=== PATIENT | female | born 1955 | race Caucasian/White ===

== ENCOUNTER 2016-11-25 06:29 | Day surgery (SDC) | payer BC ==
[2016-11-23 10:31] LABS: BASOPHILS 0.4 %; BASOPHILS ABSOLUTE 0.02 10/3/uL (0.0-0.16); EOSINOPHILS 3.3 %; EOSINOPHILS ABSOLUTE 0.17 10/3/uL (0.0-0.53); HEMATOCRIT 38.1 % (36.0-48.0); HEMOGLOBIN 12.5 g/dL (12.0-16.0); IMMATURE GRANULOCYTES 0.2 %; IMMATURE GRANULOCYTES ABSOLUTE 0.01 10/3/uL (0.0-0.11); LYMPHOCYTES 25.8 %; LYMPHOCYTES ABSOLUTE 1.33 10/3/uL (0.67-4.30); MEAN CORPUS HGB CONC 32.8 g/dL (32.0-36.0); MEAN CORPUSCULAR HEMOGLOB 30.3 pg (26.0-34.0); MEAN CORPUSCULAR VOLUME 92.5 fL (80-100); MEAN PLATELET VOLUME 10.1 fL (9.2-13.0); MONOCYTES 8.7 %; MONOCYTES ABSOLUTE 0.45 10/3/uL (0.21-1.20); NEUTROPHILS 61.6 %; NEUTROPHILS ABSOLUTE 3.17 10/3/uL (2.02-8.40); PLATELET COUNT 193 10/3/uL (150-400); RBC DISTRIBUTION WIDTH 12.9 % (12.0-16.0); RED CELL COUNT 4.12 10/6/uL (4.0-5.6); WHITE BLOOD CELLS 5.2 10/3/uL (4.5-10.5)
[2016-11-23 10:35] LABS: PARTIAL THROMBO TIME 23.8 SEC (22.5-37.2); PROTIME (NOT ORD) 13.1 SEC (12.0-14.5)
[2016-11-23 10:37] LABS: MANUAL DIFF NO %
[2016-11-23 10:39] LABS: BUN (BLOOD UREA NITROGEN) 14 MG/DL (6-23); CALCIUM, SERUM 9.1 MG/DL (8.5-10.4); CHLORIDE, SERUM 108 MMOL/L (96-112); CO2 (CARBON DIOXIDE) 28 MMOL/L (24-34); GFR AFRICAN AMERICAN 108 ML/MIN (>=60); GFR NON AFRICAN AMERICAN 93 ML/MIN (>=60); GLUCOSE, SERUM 120 MG/DL (60-99); SODIUM, SERUM 143 MMOL/L (135-148)
[2016-11-23 10:50] LABS: PFA (COL/EPI) 158 SEC (72-180)
--- NOTE | ~2016-11-25 | OP ---
Record Of Operation [facility] [address] [place]. [address] NAME: IBRAHIMA SHEETS : 53 STATUS : [facility] UNIT#: [id number] AGE: 61 ADM/REG DATE : 11/25/16 MR#: [id number] REPORT SERV DATE: 11/26/16 DICTATED BY: WILY OSBORN DATE: 11/25/16 REPORT STATUS : Draft TRANSCRIBED BY: NATALIA DATE: 11/25/16 DATE OF PROCEDURE: 11/25/2016 PREOPERATIVE DIAGNOSIS: Surgical absence of the breast. POSTOPERATIVE DIAGNOSES: Surgical absence of the breast and bilateral breast deformity. PROCEDURE: Right tissue go cart mechanic exchange to definitive silicone implant and fat grafting and liposuction for deformity correction. INDICATIONS AND FINDINGS OF THE PROCEDURE: This middle-aged female is status post a bilateral breast reconstruction radiation therapy. She is now appropriate for exchange of her right sub latissimus dorsi tissue go cart mechanic for definitive silicone implant and fat grafting and revision of breasts bilaterally. DETAILS OF THE PROCEDURE: The patient was brought to the operating room after being marked in the preoperative holding area. She was prepped and draped in the usual sterile fashion for the above-described procedure. First, our attention was turned to the abdomen. Through two small stab incisions, approximately 250 mL of wetting solution was infiltrated into the abdomen and then about 250 mL of fatty aspirate was removed to REVOLVE apparatus. This was treated appropriately and then transferred to 10 mL syringes. Using a topographical map placed before surgery and multiple stab incisions made around the breast mound, approximately 100 mL of fatty aspirate was then transferred to the topographical map. Completing this, then our attention was turned to the sternum. An inferior stab incision was made and approximately 30 mL of wetting solution was infiltrated over the sternum and fat aspiration was then undertaken here laterally. On the right breast, a similar procedure was carried out. With this completed, then a medial incision was made excising a small amount of the cutaneous paddle of the latissimus dorsi muscle and dissection was carried down to the level of the tissue go cart mechanic on the right. The tissue go cart mechanic was ruptured and removed. A superior capsulotomy was carried out. Lateral capsulotomy was carried out. She was checked for hemostasis, irrigated with Hibiclens solution. An inferior drain was then placed and a 420 mm plus implant was placed into the site. This was manipulated into an appropriate position. The wounds were then closed with a deep layer of Vicryl and multiple layers of Monocryl through to an intracuticular in the skin. Laterally, a small dog ear was excised about 3 cm in length, excised lenticularly through to the level of the underlying fat. Hemostasis was checked with cautery. This was closed with interrupted and running 3-0 Monocryl. Extraction and injection incisions were then closed with 5-0 fast-absorbing gut. She was cleansed with peroxide. Dry dressing was placed. She was remanded to the recovery room in stable condition. All sponge and needle counts were correct. YODIT/NATALIA Wily Osborn M.D. Record Of Operation [address] [address] NAME: IBRAHIMA SHEETS : 53 STATUS : [facility] PAT#: [id number] AGE: 61 ADM/REG DATE : 11/25/16 MR#: [id number] REPORT SERV DATE: 11/26/16 DICTATED BY: WILY OSBORN DATE: 11/25/16 REPORT STATUS : Draft TRANSCRIBED BY: NATALIA DATE: 11/25/16 / [id number] CC: Tyron Rubi Jr., M.D.
[~2016-11-25 06:29] MED LIST: ASAB PO; AT25 PO; ATV.5 PO; CALTRA600D PO; GLUCCHONDR PO; GLUCPH PO; K500 PO; MULTIVIT/MIN PO; NORV25 PO; PERCOCET1 TA2 PO; PRILO PO; TAMOXIFEN20 M1 PO; VITAMIN D1000 UNI1 PO; ZANTAC150 MG PO
[2017-03-08] MEDS ORDERED: NORCO1 TA1 PO (22:39)
[2017-03-08] MEDS ORDERED: NORV25 PO (22:40)
[2017-03-08] MEDS ORDERED: TYLENOL PM PO (22:40)
[2017-03-08] MEDS ORDERED: ATV.5 PO (22:40)
[2017-03-08] MEDS ORDERED: TAMOXIFEN20 M1 PO (22:40)
[2017-03-08] MEDS ORDERED: ASAB PO (22:41)
[2017-03-08] MEDS ORDERED: VITAMIN D31000 UNIT PO (22:41)
[2017-03-08] MEDS ORDERED: MULTIVITAMI1 PO (22:41)
[2017-03-08] MEDS ORDERED: MAG OXIDE250 MG PO (22:41)
[2017-03-11] MEDS ORDERED: C2 PO (13:57)
[2017-03-11] MEDS ORDERED: ZOFRAN4 PO (13:57)
== END 2016-11-25 13:34 | disposition home or self-care (01) ==
LOC: SDC 06:29
PROVIDERS: Surgery Surgery of the Hand
PROC: 0HRT0JZ Replacement of Right Breast with Synthetic Substitute, Open Approach (ICD-10-PCS; 2016-11-25)
PROC: 0HPT0NZ Removal of Tissue Expander from Right Breast, Open Approach (ICD-10-PCS; principal; 2016-11-25 07:45)
DX: N65.0 Deformity of reconstructed breast (principal); G43.909 Migraine, unspecified, not intractable, without status migrainosus; M81.0 Age-related osteoporosis without current pathological fracture; I10 Essential (primary) hypertension; K21.9 Gastro-esophageal reflux disease without esophagitis; E11.9 Type 2 diabetes mellitus without complications; M06.9 Rheumatoid arthritis, unspecified; F41.9 Anxiety disorder, unspecified; Z85.3 Personal history of malignant neoplasm of breast; Z88.8 Allergy status to other drugs, medicaments and biological substances
CPT/HCPCS: 80048; 82962; 85025; 85576; 85610; 85730; 93005; A9270-GY; C1769; C1789; J0690; J1170; J1885; J2250; J2405; J3010

== ENCOUNTER 2017-03-31 05:32 | Day surgery (SDC) | payer BC ==
[2017-03-28 17:22] LABS: CALCIUM, SERUM 8.8 MG/DL (8.5-10.4); CHLORIDE, SERUM 102 MMOL/L (96-112); CO2 (CARBON DIOXIDE) 30 MMOL/L (24-34); CREATININE 0.73 MG/DL (0.55-1.02); GFR AFRICAN AMERICAN 102 ML/MIN (>=60); GFR NON AFRICAN AMERICAN 88 ML/MIN (>=60); GLUCOSE, SERUM 127 MG/DL (60-99); POTASSIUM, SERUM 4.4 MMOL/L (3.5-5.3); SODIUM, SERUM 136 MMOL/L (135-148)
[2017-03-28 17:25] LABS: BASOPHILS 0.1 %; BASOPHILS ABSOLUTE 0.01 10/3/uL (0.0-0.16); EOSINOPHILS ABSOLUTE 0.16 10/3/uL (0.0-0.53); HEMATOCRIT 38.9 % (36.0-48.0); HEMOGLOBIN 12.3 g/dL (12.0-16.0); IMMATURE GRANULOCYTES 0.3 %; IMMATURE GRANULOCYTES ABSOLUTE 0.02 10/3/uL (0.0-0.11); LYMPHOCYTES 9.1 %; LYMPHOCYTES ABSOLUTE 0.72 10/3/uL (0.67-4.30); MEAN CORPUS HGB CONC 31.6 g/dL (32.0-36.0); MEAN CORPUSCULAR HEMOGLOB 29.8 pg (26.0-34.0); MEAN CORPUSCULAR VOLUME 94.2 fL (80-100); MEAN PLATELET VOLUME 10.2 fL (9.2-13.0); MONOCYTES 4.5 %; MONOCYTES ABSOLUTE 0.36 10/3/uL (0.21-1.20); NEUTROPHILS ABSOLUTE 6.66 10/3/uL (2.02-8.40); PLATELET COUNT 228 10/3/uL (150-400); RBC DISTRIBUTION WIDTH 13.6 % (12.0-16.0); RED CELL COUNT 4.13 10/6/uL (4.0-5.6)
[2017-03-28 17:26] LABS: BUN (BLOOD UREA NITROGEN) 12 MG/DL (6-23)
[2017-03-28 17:35] LABS: MANUAL DIFF NO %; WHITE BLOOD CELLS 7.9 10/3/uL (4.5-10.5)
[~2017-03-31] VITALS: Ht 154.9 cm; Wt 70.3 kg
--- NOTE | ~2017-03-31 | OP ---
Record Of Operation [facility] [address] [place]. [address] NAME: IBRAHIMA SHEETS : 53 STATUS : [facility]#: [id number] AGE: 61 ADM/REG DATE : 03/31/17 MR#: [id number] REPORT SERV DATE: 04/03/17 DICTATED BY: SIMRAN PARK DATE: 03/31/17 REPORT STATUS : Draft TRANSCRIBED BY: MODRobyn DATE: 03/31/17 DATE OF PROCEDURE: PREOPERATIVE DIAGNOSIS: Stage IV breast cancer with bone metastasis. POSTOPERATIVE DIAGNOSIS: Stage IV breast cancer with bone metastasis. PROCEDURES: 1. Placement of an internal jugular venous port. 2. Intraoperative ultrasound for vein access. 3. Intraoperative fluoroscopy with interpretation. INDICATION FOR THE PROCEDURE: Ms Sheets is a healthy 61-year-old female, who has undergone bilateral mastectomy, sentinel node biopsy, and axillary dissection for a fairly aggressive right breast cancer. She is in her oncologic surveillance setting and recently had a fall with orthopedic injury to the hip. The patient was found to have bone metastasis on the biopsy of the hip during repair and now is going to move forward with additional chemotherapy. The patient will need a port for chemotherapy. OPERATIVE FINDINGS: After appropriate consent was noted on the chart, the patient was taken to the operating room in supine position. She was placed under monitored anesthesia without complication. The ultrasound was placed in the left neck and the vein was noted to be quite small, possibly scarred, but was compressible. The right neck internal jugular vein was large and patent. The bilateral chest and neck were prepped and draped in sterile fashion. With a draped ultrasound probe, the left internal jugular vein was visualized. Local anesthetic was infiltrated in the skin and soft tissue, but the vein was very difficult to access. I did also try a left subclavian approach on this side without good vein flow or access. After approximately 20 minutes of attempting access on the left side, I decided to go to the right side. Under direct ultrasound guidance, the right internal jugular vein was accessed on the single pass. Nonpulsatile venous appearing blood was noted in the syringe. Syringe was removed and the wire passed with ease. Fluoroscopy noted the wire to be in good position in the vena cava. The wire was secured to the drapes for later use. The port pocket was anesthetized with local anesthetic. Incision was made with a #15 blade. Sharp dissection was carried down to create a port pocket with Bovie cauterization. Stay sutures were placed at the 3 o'clock and 9 o'clock positions, and secured for later use. The vein access site was lengthened with a #11 blade and the tunneling device was utilized to create a tunnel from the port pocket to the vein site. The catheter was pulled through this area. The vein was dilated with dilator and tear-away sheath with constant movement of the wire. Once the vein had been dilated, the dilator and wire were removed leaving the sheath in the vein. The catheter was passed into the vein without concern, and the sheath torn away. Fluoroscopy was utilized to pull the catheter back to the atriocaval junction. The catheter was moving with the heartbeat and reassuring that this was in fact in the vein. The catheter floated with ease, it was attached to the port once it had been shortened for length. The port was secured to the catheter with the securing device. It was sutured into the port pocket without concern. The wound was irrigated and there were good signs of hemostasis. The port was noted to aspirate and flush with ease. It was packed with Record Of Operation [address] [place]. [address] NAME: IBRAHIMA SHEETS : 53 STATUS : [facility]#: [id number] AGE: 61 ADM/REG DATE : 03/31/17 MR#: [id number] REPORT SERV DATE: 04/03/17 DICTATED BY: SIMRAN PARK DATE: 03/31/17 REPORT STATUS : Draft TRANSCRIBED BY: NATALIA DATE: 03/31/17 heparinized saline. The incision was then closed in two layers of Monocryl. A small interrupted suture was buried in the vein access site for closure. The skin was cleansed and dried. Dermabond was applied, Telfa and Tegaderm were placed once it had dried. The patient was awoken from anesthesia without complication. She was taken to the PACU in stable condition for recovery. All counts were correct at the end of the case. ESTIMATED BLOOD LOSS: 20 mL. COMPLICATIONS: None. SPECIMENS: None. BARB/NATALIA Simran Park MD / [id number] CC: MD Jose Manrique Jr., M.D. Mark Brzezienski, M.D. Lisa Virostek, M.D. Sylvia Krueger, M.D. [facility] Sina Penny M.D.
[~2017-03-31 05:32] MED LIST changes: +C2 PO; +MAG OXIDE250 MG PO; +MULTIVITAMI1 PO; +NORCO1 TA1 PO; +TYLENOL PM PO; +VITAMIN D31000 UNIT PO; +ZOFRAN4 PO
[2017-03-31 06:38] LABS: PROTIME (NOT ORD) 13.4 SEC (12.0-14.5)
== END 2017-03-31 18:19 | disposition home or self-care (01) ==
LOC: SDC 05:32
PROVIDERS: Surgery Surgical Oncology
PROC: B513ZZA Fluoroscopy of Right Jugular Veins, Guidance (ICD-10-PCS; 2017-03-31)
PROC: 05HM33Z Insertion of Infusion Device into Right Internal Jugular Vein, Percutaneous Approach (ICD-10-PCS; principal; 2017-03-31 06:45)
DX: C50.511 Malignant neoplasm of lower-outer quadrant of right female breast (principal); C79.51 Secondary malignant neoplasm of bone; E11.9 Type 2 diabetes mellitus without complications; I11.9 Hypertensive heart disease without heart failure; I82.409 Acute embolism and thrombosis of unspecified deep veins of unspecified lower extremity; J98.4 Other disorders of lung; Z98.890 Other specified postprocedural states; Z90.13 Acquired absence of bilateral breasts and nipples; Z91.030 Bee allergy status; Z88.6 Allergy status to analgesic agent; Z91.048 Other nonmedicinal substance allergy status; Z88.8 Allergy status to other drugs, medicaments and biological substances; Z79.82 Long term (current) use of aspirin; Z79.01 Long term (current) use of anticoagulants; Z79.899 Other long term (current) drug therapy
CPT/HCPCS: 71010; 71260; 74160; 74177; 77001; 78306; 80048; 82962; 85025; 85610; 93306; A9270-GY; A9561; C1751; J0690; J2250; J2405; J3010; Q9967